=== PATIENT | female | born 1955 | race Caucasian/White ===

== ENCOUNTER → 2020-09-20 11:29 | Outpatient (CLI) | payer MEDICARE, SELFPAY ==
--- NOTE | ~2020-09-20 | DEXA_ITS ---
Bone Density Report Name: Belinda Fong Age: 64 Sex: Female Ethnicity: White Date of : 1955 Indication: osteopenia; parental hip fracture; hysterectomy; Referring Provider: STEVE HAMLIN Study: Bone densitometry was performed. Exam Date: September 20, 2020 Accession number: [id number] Bone Density: Region BMD T-score Z-score Classification AP Spine (L1-L4) 1.014 -0.3 1.5 Normal Femoral Neck (Left) 0.635 -1.9 -0.4 Osteopenia Total Hip (Left) 0.767 -1.4 -0.2 Osteopenia Femoral Neck (Right) 0.685 -1.5 0.1 Osteopenia Total Hip (Right) 0.796 -1.2 0.1 Osteopenia Total Hip Mean 0.782 -1.3 -0.1 Osteopenia World Health Organization criteria for BMD impression classify patients as: Normal (T-score at or above -1.0), Osteopenia (T-score between -1.0 and -2.5), or Osteoporosis (T-score at or below -2.5). 10-year Fracture Risk(1): Major Osteoporotic Fracture 19% Hip Fracture 3.0% Reported Risk Factors: [place] (), Neck BMD=0.635, BMI=28.4, parental fracture, smoking (1) FRAX(R) Version 3.08. Fracture probability calculated for an untreated patient. Fracture probability may be lower if the patient has received treatment. Previous Exams: Region Exam Age BMD T-score BMD Change BMD Change Date g/cm2 vs Baseline vs Previous AP Spine(L1-L4) 09/20/2020 64 1.014 -0.3 0.056* 0.027* 09/10/2018 62 0.987 -0.5 0.029* -0.025* 02/24/2016 60 1.012 -0.3 0.054* 0.050* 02/16/2014 58 0.962 -0.8 0.004 0.004 01/30/2011 55 0.958 -0.8 Total Hip(Left) 09/20/2020 64 0.767 -1.4 -0.062* -0.034* 09/10/2018 62 0.801 -1.2 -0.028* 0.010 02/24/2016 60 0.791 -1.2 -0.037* 0.006 02/16/2014 58 0.786 -1.3 -0.043* -0.043* 01/30/2011 55 0.829 -0.9 Total Hip(Right) 09/20/2020 64 0.796 -1.2 -0.044* 0.011 09/10/2018 62 0.785 -1.3 -0.055* 0.011 02/24/2016 60 0.774 -1.4 -0.066* -0.010 02/16/2014 58 0.784 -1.3 -0.056* -0.056* 01/30/2011 55 0.840 -0.8 *Denotes significance at 95% confidence level, LSC for AP Spine = 0.022 g/cm2, LSC for Total Hip = 0.027 g/cm2 Clinical Information Provided by Patient: Parent has had a hip fracture Smokes Has used the following medications: Vitamin D Has the following medical conditions: Hysterectomy Patient maxim
== END ==
PROVIDERS: PCP Internal Medicine; Visit Provider Obstetrics & Gynecology Gynecology
DX: Z78.0 Asymptomatic menopausal state (principal); M85.852 Other specified disorders of bone density and structure, left thigh; M85.851 Other specified disorders of bone density and structure, right thigh
CPT/HCPCS: 77080

== ENCOUNTER → 2021-03-22 11:30 | Outpatient (CLI) | payer MEDICARE, SELFPAY ==
--- NOTE | ~2021-03-22 | MM_ITS ---
EXAMINATION: MM screening [facility] BI w mignon HISTORY: Screening TECHNIQUE: Craniocaudal and mediolateral oblique 3-D tomosynthesis images were obtained and synthetic 2-D images were generated. CAD analysis was submitted and interpreted. COMPARISON: Comparison to multiple prior studies sequentially, with oldest reviewed study dated 02/2016. BREAST PARENCHYMAL COMPOSITION: There are scattered areas of fibroglandular density. FINDINGS: There is a mass in the upper outer quadrant of the right breast, seen on MLO view only. The left breast is stable without evidence for malignancy. IMPRESSION: 1. Right breast mass measuring approximately 8 mm, upper outer quadrant. 2. Additional mammographic views and possible breast ultrasound are recommended. BI-RADS Category 0: Incomplete: Needs additional imaging evaluation. Reviewed, dictated and finalized at location A. IMPRESSION: 1. Right breast mass measuring approximately 8 mm, upper outer quadrant. 2. Additional mammographic views and possible breast ultrasound are recommended . BI-RADS Category 0: Incomplete: Needs additional imaging evaluation.
== END ==
PROVIDERS: PCP Internal Medicine; Visit Provider Obstetrics & Gynecology Gynecology
DX: Z12.31 Encounter for screening mammogram for malignant neoplasm of breast (principal); R92.8 Other abnormal and inconclusive findings on diagnostic imaging of breast
CPT/HCPCS: 77063; 77067

== ENCOUNTER → 2021-05-19 08:26 | Outpatient (CLI) | payer MEDICARE, SELFPAY ==
--- NOTE | ~2021-05-19 | MM_ITS ---
EXAMINATION: MM diagnostic kadi RT w mignon HISTORY: Approximately 8 mm mass upper outer quadrant right breast mass visible only on MLO view repo rted on 03/22/2021 screening mammogram TECHNIQUE: Additional ML 3-D tomosynthesis images of the right breast were performed and synthetic 2- D images were generated. CAD analysis was submitted and interpreted. COMPARISON: 03/22/2021 bilateral digital screening mammogram FINDINGS: The previously reported currently 7 mm circumscribed low-density opacity in the anterior up per outer quadrant of the right breast corresponds to a skin mole marker. IMPRESSION: 1. No mammographic evidence of malignancy 2. Routine mammographic screening is recommended BI-RADS Category 2: Benign finding(s). Reviewed, dictated and finalized at location A.
== END ==
PROVIDERS: PCP Internal Medicine; Visit Provider Obstetrics & Gynecology Gynecology
DX: R92.8 Other abnormal and inconclusive findings on diagnostic imaging of breast (principal)
CPT/HCPCS: 77061; 77065; G0279

== ENCOUNTER → 2022-09-29 12:45 | Outpatient (CLI) | payer MEDICARE, SELFPAY ==
--- NOTE | ~2022-09-29 | DEXA_ITS ---
Bone Density Report Name: MERRITT NETTLES Age: 66 Sex: Female Ethnicity: White Date of : 1955 Indication: osteopenia; parental hip fracture; hysterectomy; postmenopausal Referring Provider: STEVE HAMLIN Study: Bone densitometry was performed. Exam Date: September 29, 2022 Accession number: [id number] Bone Density: Region BMD T-score Z-score Classification AP Spine (L1-L4) 0.987 -0.5 1.4 Normal Femoral Neck (Left) 0.573 -2.5 -0.8 Osteoporosis Total Hip (Left) 0.741 -1.6 -0.3 Osteopenia Femoral Neck (Right) 0.655 -1.7 -0.1 Osteopenia Total Hip (Right) 0.770 -1.4 0.0 Osteopenia Total Hip Mean 0.756 -1.5 -0.2 Osteopenia World Health Organization criteria for BMD impression classify patients as: Normal (T-score at or above -1.0), Osteopenia (T-score between -1.0 and -2.5), or Osteoporosis (T-score at or below -2.5). 10-year Fracture Risk: FRAX not reported because: Some T-score for Spine Total or Hip Total or Femoral Neck at or below -2.5 Previous Exams: Region Exam Age BMD T-score BMD Change BMD Change Date g/cm2 vs Baseline vs Previous AP Spine(L1-L4) 09/29/2022 66 0.987 -0.5 0.029* -0.026* 09/20/2020 64 1.014 -0.3 0.056* 0.027* 09/10/2018 62 0.987 -0.5 0.029* -0.025* 02/24/2016 60 1.012 -0.3 0.054* 0.050* 02/16/2014 58 0.962 -0.8 0.004 0.004 01/30/2011 55 0.958 -0.8 Total Hip(Left) 09/29/2022 66 0.741 -1.6 -0.088* -0.026 09/20/2020 64 0.767 -1.4 -0.062* -0.034* 09/10/2018 62 0.801 -1.2 -0.028* 0.010 02/24/2016 60 0.791 -1.2 -0.037* 0.006 02/16/2014 58 0.786 -1.3 -0.043* -0.043* 01/30/2011 55 0.829 -0.9 Total Hip(Right) 09/29/2022 66 0.770 -1.4 -0.069* -0.026 09/20/2020 64 0.796 -1.2 -0.044* 0.011 09/10/2018 62 0.785 -1.3 -0.055* 0.011 02/24/2016 60 0.774 -1.4 -0.066* -0.010 02/16/2014 58 0.784 -1.3 -0.056* -0.056* 01/30/2011 55 0.840 -0.8 *Denotes significance at 95% confidence level, LSC for AP Spine = 0.022 g/cm2, LSC for Total Hip = 0.027 g/cm2 Clinical Information Provided by Patient: Parent has had a hip fracture Smokes Has used the following medications: Vitamin D, MTV Has the following medical conditions: Hysterectomy, cervical cancer age 39 Pa
--- NOTE | ~2022-09-29 | MM_ITS ---
EXAMINATION: MM screening [facility] BI w mignon HISTORY: Screening mammogram TECHNIQUE: Craniocaudal and mediolateral oblique 3-D tomosynthesis images were obtained and synthetic 2-D images were generated. CAD analysis was submitted and interpreted. COMPARISON: 05/19/2021, 04/11/2021, 11/03/2019, 09/10/2018 BREAST PARENCHYMAL COMPOSITION: There are scattered areas of fibroglandular density. FINDINGS: No suspicious mass, calcification, or architectural distortion are identified in either vinayak ast to suggest malignancy. There has been no suspicious interval change. IMPRESSION: 1. No mammographic evidence of malignancy. 2. Recommend routine screening mammography in one year. BI-RADS Category 1: Negative Reviewed, dictated and finalized at location A. 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
== END ==
PROVIDERS: PCP Internal Medicine; Visit Provider Obstetrics & Gynecology Gynecology
DX: Z12.31 Encounter for screening mammogram for malignant neoplasm of breast (principal); Z78.0 Asymptomatic menopausal state; M81.0 Age-related osteoporosis without current pathological fracture; M85.852 Other specified disorders of bone density and structure, left thigh; M85.851 Other specified disorders of bone density and structure, right thigh
CPT/HCPCS: 77063; 77067; 77080

== ENCOUNTER → 2023-11-01 14:03 | Outpatient (CLI) | payer MEDICARE, SELFPAY ==
--- NOTE | ~2023-11-01 | MM_ITS ---
EXAMINATION: MM screening [facility] BI w mignon HISTORY: Screening mammogram TECHNIQUE: Craniocaudal and mediolateral oblique 3-D tomosynthesis images were obtained and synthetic 2-D images were generated. CAD analysis was submitted and interpreted. COMPARISON: 09/29/2022, 05/19/2021, 03/22/2021, 11/03/2019 BREAST PARENCHYMAL COMPOSITION: There are scattered areas of fibroglandular density. FINDINGS: No suspicious mass, calcification, or architectural distortion are identified in either vinayak ast to suggest malignancy. There has been no suspicious interval change. IMPRESSION: 1. No mammographic evidence of malignancy. 2. Recommend routine screening mammography in one year. BI-RADS Category 1: Negative Reviewed, dictated and finalized at location A. 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
== END ==
PROVIDERS: PCP Obstetrics & Gynecology Gynecology; Visit Provider Obstetrics & Gynecology Gynecology
DX: Z12.31 Encounter for screening mammogram for malignant neoplasm of breast (principal)
CPT/HCPCS: 77063; 77067

== ENCOUNTER 2025-06-25 13:47 | Outpatient (CLI) | payer MEDICARE, SELFPAY ==
--- NOTE | ~2025-06-25 | MM_ITS ---
EXAMINATION: MM screening [facility] BI w mignon HISTORY: Screening TECHNIQUE: Craniocaudal and mediolateral oblique 3-D tomosynthesis images were obtained and synthetic 2-D images were generated. CAD analysis was submitted and interpreted. COMPARISON: Mammograms from 11/01/2023 and 09/29/2022 BREAST PARENCHYMAL COMPOSITION: There are scattered areas of fibroglandular density. FINDINGS: There is no evidence of suspicious mass, calcification, or architectural distortion to suggest malignancy. There has been no suspicious interval change. IMPRESSION: 1. No mammographic evidence of malignancy. Recommend routine screening mammography in one year. BI-RADS Category 2: Benign finding(s) Reviewed, dictated and finalized at location Q. IMPRESSION: 1. No mammographic evidence of malignancy. Recommend routine screening mammogra phy in one year. BI-RADS Category 2: Benign finding(s)
--- NOTE | ~2025-06-25 | DEXA_ITS ---
Bone Density Report Name: MERRITT NETTLES Age: 69 Sex: Female Ethnicity: White Date of : 1955 Indication: postmenopausal; screening for osteoporosis; height loss; cancer; hysterectomy; Referring Provider: STEVE HAMLIN Study: Bone densitometry was performed. Exam Date: June 25, 2025 Accession number: [id number] Bone Density: Region BMD T-score Z-score Classification AP Spine(L1-L4) 0.937 -1.0 1.1 Normal Femoral Neck (Left) 0.630 -2.0 -0.1 Osteopenia Total Hip (Left) 0.776 -1.4 0.2 Osteopenia Femoral Neck (Right) 0.617 -2.1 -0.3 Osteopenia Total Hip (Right) 0.761 -1.5 0.0 Osteopenia Total Hip Mean 0.768 -1.5 0.1 Osteopenia World Health Organization criteria for BMD impression classify patients as: Normal (T-score at or above -1.0), Osteopenia (T-score between -1.0 and -2.5), or Osteoporosis (T-score at or below -2.5). 10-year Fracture Risk(1): Major Osteoporotic Fracture 13% Hip Fracture 4.0% Reported Risk Factors: [place] (), Neck BMD=0.617, BMI=28.1, smoking (1) FRAX(R) Version 3.08. Fracture probability calculated for an untreated patient. Fracture probability may be lower if the patient has received treatment. Clinical Information Provided by Patient: Smokes Has used the following medications: Fosamax (i.e. alendronate), Vitamin D, Calcium Has the following medical conditions: Cancer, Hysterectomy Patient maximum height was 66 Menopause Age: 39 No regular weight bearing exercise Drinks caffeinated beverages Onset of menses at age 12 Number of children 0 Impression: The patient has low bone mass, based on the Right Femoral Neck T-score. The patient has an estimated ten-year risk of hip fracture of 4% and an estimated ten-year risk of major fracture of 13%, based on the WHO FRAX algorithm. The patient has risk factors, including: smoking. Discussion: BONE DENSITY IS LOW AT ONE OR MORE SKELETAL SITES. THE PATIENT'S BMD AND CLINICAL RISK FACTORS CONTRIBUTE TO THIS PATIENT'S INCREASED RISK OF FRACTURE. This patient's lowest T-score is low at one or more skeletal sites. It meets the World Health Organization's (WHO) criteria for ?low bone mass? (T-score between -1.0 and -2.5). The patient's 10-year risk of hip fracture as calculated by FRAX exceeds the threshold where pharmacological therapy is recommended by the National Osteoporosis Foundation (NOF). However, all treatment decisions require clinical judgment and consideration of individual patient factors, including patient preferences, comorbidities, previous drug use, risk factors not captured in the FRAX model (e.g., frailty, falls, vitamin D deficiency, increased bone turnover, interval significant decline in bone density) and possible under or overestimation of fracture risk by FRAX. The patient should follow a healthful lifestyle (good nutrition with adequate calcium and vitamin D, and appropriate weight-bearing exercise). Follow-Up: Consider a repeat BMD and Vertebral Fracture Assessment (VFA) exam in 2 years or sooner if medically necessary, to reassess this patient's status. Reported by: CORY on 06/25/2025 2:40:00 PM. Reviewed, dictated and finalized at location A.
--- OUTSIDE RECORDS SUMMARY | 2025-06-25 14:03 | XMS_ITS | Clinical Summary ---
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 Penicillin allergy History form completed, severe risk Medications OMEGA-3 FATTY ACIDS (FISH OIL ORAL) Take 1 Cap by mouth daily. Active cyanocobalamin (VITAMIN B-12) 500 mcg tablet Take 500 mcg by mouth daily. Active valACYclovir (VALTREX) 500 mg tablet 1 Tablet daily. 5 Active cyclobenzaprine (FLEXERIL) 10 mg tablet Take 1 Tablet (10 mg) by mouth nightly as needed for Spasm. 30 Tablet 1 9 Active ferrous sulfate 325 mg (65 mg iron) tablet Take 1 pill every other day. 2 Active alendronate (FOSAMAX) 70 mg tablet TAKE 1 TABLET BY MOUTH ONCE A WEEK 3 Active diazePAM (VALIUM) 5 mg tabletIndication s:Anxiety state Take 1 Tablet (5 mg) by mouth every 6 hours as needed for Anxiety. 60 Tablet 3 Active modafiniL (ProvigiL) 100 mg TabletIndication s:Narcolepsy due to underlying condition without cataplexy Take 1 Tablet (100 mg) by mouth daily. Dx Narcolepsy 90 Tablet 3 3 Active levothyroxine 125 mcg tablet Take 1 Tablet (125 mcg) by mouth daily in the morning. 100 Tablet 3 4 Active nicotine (NICODERM CQ) 21 mg/24 hr patch Apply 1 Patch to skin as directed every 24 hours. 30 Patch 3 4 Active simvastatin (ZOCOR) 40 mg tablet TAKE 1 TABLET BY MOUTH ONCE DAILY WITH SUPPER 90 Tablet 3 4 Active DULoxetine (CYMBALTA) 20 mg Capsule, Delayed Release(E.C.) Take 1 Capsule (20 mg) by mouth daily. 90 Capsule 3 4 Active DULoxetine (CYMBALTA) 20 mg Capsule, Delayed Release(E.C.) Take 1 capsule by mouth once daily 90 Capsule 4 Active modafiniL (PROVIGIL) 200 mg TabletIndication s:Narcolepsy due to underlying condition without cataplexy Take 1 Tablet (200 mg) by mouth daily. 90 Tablet 3 4 Active losartan (COZAAR) 25 mg tabletIndication s:Essential hypertension Take 1 Tablet (25 mg) by mouth daily. 100 Tablet 1 5 Active doxycycline hyclate (VIBRAMYCIN) 100 mg capsule Take 1 Capsule (100 mg) by mouth 2 times daily. 20 Capsule 5 Active ezetimibe (ZETIA) 10 mg tablet Take 1 Tablet (10 mg) by mouth daily. 100 Tablet 3 5 Active levothyroxine 112 mcg tablet Take 1 Tablet (112 mcg) by mouth daily in the morning. 100 Tablet 3 5 Active buPROPion HCL (WELLBUTRIN SR) 100 mg Sustained Release 12 hour tablet Take 1 Tablet (100 mg) by mouth 2 times daily. 180 Tablet 5 Active buPROPion HCL (WELLBUTRIN SR) 100 mg Sustained Release 12 hour tablet Take 1 tablet by mouth twice daily 180 Tablet 4 025 Discontin ued(Reord er) Active Problems Patient Care Coordination No te Formatting of this note migh t be different from the original. IOCP Declined, Meredith Mercado, RN - Street Light Mechanic [id number] 05/12/24 Problem Noted Date Diagnosed Date Essential hypertension 09/28/2022 Assessment & Plan (01/13/2025 1:01 PM CDT): Uncontrolled. Initial blood pressure and repeat blood pressures remain elevated. Restart Losartan at 25mg QD. Pt to check ambulatory pressures 2-3 times a week and record readings, and call if remains elevated. Discussed goals of treatment and risks of untreated HTN in detail including complications like heart disease, renal complications, and stroke. Handouts provided. Patient verbalized understanding. LVH (left ventricular hypertrophy) 03/11/2018 Overview (03/11/2018): 03/08- echo mild eF 53% Diastolic dysfunction 03/11/2018 Overview (03/11/2018): 03/08 echo- grade 1, EF 53% Tobacco use 07/08/2015 Leukocytosis 09/22/2013 Hyperlipidemia 11/30/2010 Vitamin D deficiency 11/30/2010 Osteoporosis 11/30/2010 Depression 11/30/2010 Urinary incontinence 11/30/2010 Hypothyroidism 11/30/2010 Assessment & Plan (01/13/2025 1:01 PM CDT): TSH 0.84 Continue Levothyroxine at 112 mcg QD Resolved Problems Problem Noted Date Diagnosed Date Resolved Date Vertigo 07/06/2014 03/09/2016 Encounters Date Type Department Care Team Description 06/07/2025 Refill [place] [address] [place] [address] [place] [phone] Jose Marcano MD 05/26/2025 Patient Outreach [facility] Outbound Calling [phone] [place] [address] Azalea Glaser PCA Primary Care Outreach (Breast Cancer Screening) [facility] [facility] [place] [address] [place] [phone] Jose Marcano MD 05/06/2025 External Device Data [facility] ABSTRACTION Provider, Abstract 05/05/2025 External Device Data [facility] ABSTRACTION Provider, Abstract 04/09/2025 Results Follow-Up [place] [address] [place] [phone] LUNG SCREENING (LDCT BASELINE OR ANNUAL) 04/08/2025 1:36 PM CDT - 04/08/2025 11:59 PM CDT Hospital Encounter [facility] CT Scan [place] [address] [place] [address] [place] [phone] Jose Marcano MD Discharge Disposition: Home or Self Care 04/07/2025 External Device Data ST[facility] ABSTRACTION Provider, Abstract 04/02/2025 12:00 PM CDT Office Visit [facility] [address] [place] [phone] Jose Marcano MD Screening mammogram, encounter for (Primary Dx); Stage 3a chronic kidney disease (CMS/HCC); Enlarged lymph node; Other acute sinusitis, recurrence not specified from Last 3 Months Immunizations Immunization Administration Dates Next Due (ADACEL/BOOSTRIX)(10 YR UP) TDAP VACCINE, 0.5ML, IM 11/04/2015 (AREXVY)(60 YR UP) RSV, DONNA MBINANT, PROTEIN SUBUNIT RSVPREF, ADJUVANT RECONSTITUTED, 0.5 ML, PF 10/22/2023 (PNEUMOVAX 23)(50 YRS UP) PN EUMOCOCCAL POLYSACCHARIDE (PPV23) 0.5 ML, IM 11/06/2018,08/21/2011 (PREVNAR 13)(6 WKS UP) PNEUM OCOCCAL CONJUGATE (PCV13) 0.5 ML, IM 07/14/2020 (SHINGRIX)(50 YRS UP) ZOSTER VACCINE RECOMBINANT, 0.5 ML, IM 09/14/2020,06/30/2020 (SPIKEVAX) (12 YRS UP PRIMAR Y SERIES) COVID-19 VACCINE - MRNA-1273(PF) 100 MCG/0.5 ML IM SUSP 04/13/2022,10/07/2021,01/24/2021,12/27 INFLUENZA VACCINE HIGH DOSE QUADRIVALENT 65 YR UP PF IM 08/24/2022,07/20/2021,07/14/2020 INFLUENZA VACCINE QUADRIVALE NT 6 MOS UP IM 08/22/2023 INFLUENZA VACCINE QUADRIVALE NT 6 MOS UP PF IM 09/10/2019 Influenza Seasonal Unspecifi ed Formulation IM 08/13/2017,10/11/2016,10/05/2015,08/06,08/20/2013,07/22/2012,07/28/2011 Influenza Vaccine High Dose 65+ Yrs IM 4 Influenza Vaccine Split 3+ Yrs PF IM 07/03/2018 Zoster Vaccine Live SQ 03/08/2016 Family History Medical History Relation Name Comments Diabetes Brother 3 Jacobo High Cholesterol Brother 3 Jacobo Hypertension Brother 3 Jacobo Other Brother 3 Jacobo brain tumor Glaucoma Brother 4 Efrain Hypertension Brother 4 Efrain Kidney Disease Brother 4 Efrain Hypertension Brother 5 Lung Cancer Father Joni Diabetes Maternal Grandfather Ede Diabetes Maternal Grandmother Adelina Osteoporosis Maternal Grandmother Adelina Skin Cancer Maternal Grandmother Adelina Diabetes Mother Marivel High Cholesterol Mother Marivel Hypertension Mother Marivel Stroke Mother Marivel Diabetes Paternal Grandmother Etha High Cholesterol Sister 4 Gladys Hypertension Sister 4 Gladys Skin Cancer Sister 4 Gladys Thyroid Disease Sister 4 Gladys High Cholesterol Sister 5 Radha Hypertension Sister 5 Radha Kidney Disease Sister 5 Radha Thyroid Disease Sister 5 Radha Diabetes Sister 6 Gladys michael Relation Name Status Comments Brother 1 (Age 68) Brother 2 Alive Brother 3 Jacobo Brother 4 Efrain Brother 5 Father Joni (Age 77) Maternal Grandfather Ede Maternal Grandmother Adelina Mother Marivel (Age 56) Paternal Grandmother Etha Sister 1 Alive Sister 2 Alive Sister 3 Alive Sister 4 Gladys Sister 5 Radha Sister 6 Gladys michael Social History Tobacco Use Types Packs/Day Years Used Date Smoking Tobacco: Every Day Cigarettes 0.3 40 Started: 05/03/1982; Last attempted to quit: 05/03/2022 Passive Smoke Exposure: Never Smokeless Tobacco: Never Tobacco Cessation:Ready to Q uit: Yes; Counseling Given: Yes Alcohol Use Standard Drinks/Week Comments No 0 (1 standard drink = 0.6 oz pur e alcohol) Financial Resource Strain Answer Date R ecorded How hard is it for you to pa y for the very basics like food, housing, medical care, and heating? Not hard at all 01/18/2022 Food Insecurity Answer Date Recorded In the past 12 months, have you worried that your food would run out before you had money to buy more? Never true 01/18/2022 In the past 12 months, did y ou run out of food and didn't have money to buy more? Never true 01/18/2022 Transportation Needs Answer Date Record ed In the past 12 months, has l ack of transportation kept you from medical appointments or from getting medications? No 01/18/2022 Lack of Transportation (Non-Medical) Not on file 01/18/2022 Comments No Sex and Gender Information Value Date Recorded Sex Assigned at Female 01/06/2025 9:31 AM CDT Legal Sex Female 5:59 AM SPECIAL LIBRARIAN Gender Identity Female 01/06/2025 9:31 AM CDT Sexual Orientation Straight 01/06/2025 9: 31 AM CDT Last Filed Vital Signs Vital Sign Reading Time Taken Comments Blood Pressure 139/86 04/02/2025 11:48 AM CDT Pulse 72 04/02/2025 11:48 AM CDT Temperature 36.2 C (97.2 F) 04/02/2025 11:48 AM CDT Respiratory Rate 15 05/03/2023 1:19 PM CDT Oxygen Saturation 96% 04/02/2025 11:48 AM CDT Inhaled Oxygen Concentration - - Weight 76.2 kg (168 lb) 04/02/2025 11:48 AM CDT Height 167.6 cm (5' 6) 04/02/2025 11:48 AM CDT Body Mass Index 27.12 04/02/2025 11:48 AM CDT Plan of Treatment Upcoming Encounters Date Type Department Care Team (Late st Contact Info) Description 07/14/2025 11:00 AM CDT Office Visit [address] [place] [phone] Louisa Frias PA [address] [place] [address] [address] [place] [phone] 01/14/2026 11:40 AM CDT Office Visit [address] [place] [phone] Jose Marcano MD [address] [place] [phone] Health Maintenance Due Date Last Done Comments FIT/ DNA Q 3 YEARS (AUTO ORDER) 1972 FIT/FOBT Q 1 YEAR (AUTO ORDER) 1972 FIT-DNA Q 3 years 1999 FIT/FOBT Q 1 year 1999 Flex Sig/CT Colonography Q 5 years 1999 BREAST CANCER SCREENING 11/01/2024 11/01/19 24, 11/01/2023, 11/01/2023, Additional history exists Pre-Diabetes and Diabetes Screening 01/16/2025 01/16/2022, 08/31/2016 Traditional Medicare ([facility]) A nnual Wellness Visit 05/13/2025 05/12/2024, 05/03/2023, 01/18/2022, Additional history exists INFLUENZA VACCINE (#1) 2025 , 08/22/2023, 08/24/2022, Additional history exists COVID-19 Vaccine ( - 2024-2 6 season) 2025 04/13/2022, 10/07/2021, 01/24/2021, Additional history exists PNEUMOCOCCAL VACCINE 50+ YEA RS (3 of 3 - PCV20 or PCV21) 07/14/2025 07/14/2020, 11/06/2018, 08/21/2011 DTAP/TDAP/TD VACCINES (2 - T d or Tdap) 11/04/2025 11/04/2015 FLEX SIG/CT COLONOGRAPHY Q 5 YEARS (AUTO ORDER) 09/06/2027 09/06/2022, 09/06/2022 OSTEOPOROSIS SCREENING 09/29/2027 09/29/2022, 2019 COLORECTAL CANCER SCREENING (AUTO ORDER) 09/06/2032 09/06/2022, 09/06/2022, 09/06/2022, Additional history exists COLORECTAL SCREENING 09/06/2032 09/06/2022, 09/06/2022, 09/06/2022, Additional history exists Colorectal Cancer Screening (AUTO ORDER) 09/06/2032 Colorectal Cancer Screening 09/06/2032 ZOSTER VACCINE Completed 09/14/2020, 090 06/2020, 03/08/2016 RSV VACCINE (60+ or ) Completed 10/22/2023 Procedures Procedure Name Priority Date/Time Associated Diagnosis Comments CT LUNG SCREENING (LDCT BASELINE OR ANNUAL) Routine 04/08/2025 1:59 PM CDT Personal history of tobacco use, presenting hazards to health HM MAMMOGRAPHY Routine 11/01/2023 8:53 AM SPECIAL LIBRARIAN ENDOSCOPY, COLON, DIAGNOSTIC Routine 09/06/2022 HEMOGLOBIN A1C Routine 01/16/2022 12:00 AM CDT Abnormal glucose from Last 3 Months or Most Recently Relevant to Health Maintenance Results * CT LUNG SCREENING (LDCT BASELINE OR ANNUAL) (04/08/2025 1:59 PM CDT) Anatomical Region Laterality Modality Chest Computed Tomogra phy 04/08/2025 1:50 PM CDT Impressions 04/08/2025 8:38 PM CDT IMPRESSION: 1. Category 2 (benign appearance or behavior, <1% chance of malignancy) - continue annual screening with LDCT. DICTATION LOCATION: Location 1 - [facility] 04/08/2025 8:38 PM CDT EXAMINATION: CT LUNG SCREENING (LDCT BASELINE OR ANNUAL) DATE: 04/08/2025 1:59 PM TECHNIQUE: CT of the chest was performed without intravenous contrast using a low-dose CT (LDCT) technique according to low-dose lung screening chest CT protocol. The examination was performed with the adjustment of mA according to the patient size and/or the use of Iterative Reconstruction Technique. HISTORY: High-risk screening for lung cancer. 40 total pack year smoking history. COMPARISON: 02/11/2024 LIMITATIONS: Low-dose, noncontrast technique limits evaluation of the solid viscera and mediastinum. PULMONARY FINDINGS: Nodule 1: 7 mm ground glass pulmonary nodule in the left lower lobe series 2039 (image 324) is unchanged. Lung-RADS (Lung Imaging Reporting and Data System) Category: Category 2 (benign appearance or behavior, <1% chance of malignancy) - ground glass nodule(s) <30 mm. Nodule 2: 5 mm ground glass pulmonary nodule in the right lower lobe series 2040 (image 144) is unchanged. Lung-RADS (Lung Imaging Reporting and Data System) Category: Category 2 (benign appearance or behavior, <1% chance of malignancy) - ground glass nodule(s) <30 mm. Nodule 3: 3 mm solid pulmonary nodule in the right upper lobe series 3 (image 188) is new. Lung-RADS (Lung Imaging Reporting and Data System) Category: Category 2 (benign appearance or behavior, <1% chance of malignancy) - new solid nodule(s) <4 mm. There is mild bibasilar atelectasis. No focal lung consolidation, pneumothorax or pleural effusion. There are changes of pulmonary emphysema. ADDITIONAL FINDINGS: The central airways are widely patent. The aorta is of normal course and ectatic with mild atherosclerotic calcification. No supraclavicular, axillary, mediastinal, or hilar lymphadenopathy is seen. The heart is normal in size without pericardial effusion. There is coronary artery calcification. Limited images of the upper abdomen are unremarkable. No suspicious lytic or blastic osseous lesion or acute fracture. us Jose Marcano MD CT ORDERABLES Final Result * HM MAMMOGRAPHY (11/01/2023 8:53 AM SPECIAL LIBRARIAN) us Abstract Provider HEALTH MAINTENANCE Edited Resu lt - Final [facility] CLIA #[id number] [address] [place] [phone] * ENDOSCOPY, COLON, DIAGNOSTIC (09/06/2022) us Abstract Provider GI PROCEDURE ORDERABLES Final Result [facility] CLIA# [id number] [facility], [place] [address] * HEMOGLOBIN A1C (01/16/2022 12:00 AM CDT) HEMOGLOBIN A1C 5.1 <5.7 % of total Hgb [facility] Comment: For the purpose of screening for the presence of diabetes: <5.7% Consistent with the absence of diabetes 5.7-6.4% Consistent with increased risk for diabetes (prediabetes) > or =6.5% Consistent with diabetes This assay result is consistent with a decreased risk of diabetes. Currently, no consensus exists regarding use of hemoglobin A1c for diagnosis of diabetes in children. According to [place] Diabetes Association (ADA) guidelines, hemoglobin A1c <7.0% represents optimal control in non- diabetic patients. Different metrics may apply to specific patient populations. Standards of Medical Care in Diabetes(ADA). FASTING:YES FASTING: YES Blood 01/16/2022 01/16/2022 7:5 1 AM CDT us Jose Marcano MD CHEMISTRY ORDERABLES Final Re sult [address] [id number] from Last 3 Months or Most Recently Relevant to Health Maintenance Insurance MEDICARE PART A AND B [employer] MEDICARE SUPP AESSI Care Teams Splicer Machine Operator Relationship Specialty Start Date End Date Jose Marcano MD PCP - General Internal Medicine 11/28/10
--- OUTSIDE RECORDS SUMMARY | 2025-06-25 14:04 | XMS_ITS | Clinical Summary ---
Author Organization [facility] Physician Of [facility] [address] [place] [id number] Care Team Providers Care Airport Traffic Controller Name Role Phone Jose Marcano MD Primary Care Provider + Kyle Rodríguez MD Unavailable [phone] Allergies Active Allergy Reactions Criticality Noted Date Comments Escitalopram Oxalate Anxiety Low 07/06/2014 Penicillins Shortness of breath,Swelling,Other (See comments) High 11/30/2010 Told she was allergic as a child History form completed, severe risk Medications OMEGA-3 FATTY ACIDS-FISH OIL ORALIndications:s upplement Take 1 capsule by mouth cloth winder machine operator before breakfast Active DULoxetine DR (CYMBALTA) 20 mg capsuleIndication s:Anxiety with Depression Take 1 capsule (20 mg total) by mouth cloth winder machine operator before breakfast 0 Active ezetimibe (ZETIA) 10 mg tabletIndications :hyperlipidemia Take 1 tablet (10 mg total) by mouth nightly 0 Active simvastatin (ZOCOR) 40 mg tabletIndications :hyperlipidemia Take 1 tablet (40 mg total) by mouth nightly 0 Active valACYclovir (VALTREX) 500 mg tabletIndications :Skin/Soft Tissue Infection Take 0.5 tablets (250 mg total) by mouth cloth winder machine operator before breakfast 5 Active multivitamin capsuleIndication s:Vitamin Deficiency Prevention Take 1 capsule by mouth every other day Active modafiniL (PROVIGIL) 100 mg tabletIndications :Sleepiness Due To Obstructive Sleep Apnea Take 2 tablets (200 mg total) by mouth as needed Active buPROPion SR (WELLBUTRIN SR) 100 mg 12 hr tabletIndications :Anxiety with Depression Take 2 tablets (200 mg total) by mouth 2 (two) times a day 2 Active ferrous sulfate 325 mg (65 mg of elemental iron) tabletIndications :Iron Deficiency Anemia Take 1 pill every other day. 45 tablet 3 2 Active alendronate (FOSAMAX) 70 mg tabletIndications :Post-Menopausal Osteoporosis Take 1 tablet (70 mg total) by mouth once a week 4 Active calcium carbonate (OS-SIMONA) 1,500 mg (600 mg elemental) tabletIndications :Osteoporosis Take 1 tablet (1,500 mg total) by mouth cloth winder machine operator before breakfast Active cholecalciferol, vitamin D3, (VITAMIN D3 ORAL)Indications: supplement Take 1 tablet by mouth every 30 (thirty) days Active ergocalciferol (VITAMIN D) 50,000 unit capsule Take by mouth every 30 (thirty) days 5 Active losartan (COZAAR) 25 mg tablet Take 1 tablet (25 mg total) by mouth daily 5 Active levothyroxine (SYNTHROID) 112 mcg tablet Take 1 tablet (112 mcg total) by mouth daily 5 Active Active Problems Problem Noted Date Diagnosed Date Epiretinal membrane (ERM) of right eye 4 Assessment & Plan (05/14/2025 9:56 AM CDT): Stable vision/OCT Monitor Assessment & Plan (06/30/2024 6:32 PM CDT): Pt ed, monitor Myopia of both eyes 06/30/2024 Assessment & Plan (06/30/2024 6:33 PM CDT): Release updated glasses Rx Dermatochalasis of both upper eyelids 06/10/2024 Ptosis of both eyelids 06/10/2024 PVD (posterior vitreous detachment), left 2023 Assessment & Plan (05/14/2025 9:57 AM CDT): Patient was educated on the signs/sx retinal detachment, including flashes, floaters, and/or curtain over the vision. Recommend patient RTC immediately with the onset of any of these symptoms. Assessment & Plan (04/04/2024 2:45 PM CDT): No breaks noted, s/s of retinal detachment (RD) reviewed. Advised urgent evaluation with any new onset. RTC 1 month for repeat DFE Dermatochalasis of upper and lower eyelids of shayla th eyes 04/04/2024 Assessment & Plan (04/04/2024 2:45 PM CDT): Patient has noticed worsening ADL/field of vision; would like referral to plastics Pseudophakia of both eyes 04/04/2024 Assessment & Plan (05/14/2025 9:56 AM CDT): Patient was educated on the intraocular lens (IOL) status. Follow. Assessment & Plan (06/30/2024 6:33 PM CDT): Patient was educated on the intraocular lens (IOL) status. Follow. Assessment & Plan (04/04/2024 2:46 PM CDT): BCVA excellent, may need SRx OS in future Monitor Chronic diffuse otitis externa of left ear 05/14 Assessment & Plan (05/14/2023 12:26 PM CDT): Avoid ear cleaning techniques Avoid ear cleaning techniques [facility] Sensorineural hearing loss (SNHL) of both ears 0 05/14/2023 Assessment & Plan (05/14/2023 12:26 PM CDT): Avoid ear cleaning techniques [facility] Iron deficiency anemia 06/12/2022 S/P LASIK (laser assisted in situ keratomileusis) of both eyes 12/01/2020 Pilar cyst 08/25/2020 Lipoma of abdominal wall 08/25/2020 Sebaceous cyst 08/25/2020 Overview (08/25/2020): Added automatically from request for surgery [id number] Diastolic dysfunction 03/11/2018 Overview (06/12/2022): 03/08 echo- grade 1, EF 53% LVH (left ventricular hypertrophy) 03/11/2018 Overview (06/12/2022): 03/08- echo mild eF 53% Tobacco use 07/08/2015 Depression 11/30/2010 Hyperlipidemia 11/30/2010 Hypothyroidism 11/30/2010 Osteoporosis 11/30/2010 Urinary incontinence 11/30/2010 Vitamin D deficiency 11/30/2010 Encounters Date Type Department Care Team Description 05/07/2025 11:30 AM CDT Office Visit [facility] Medicine Ophthalmology [address], [address] [place] [address] Leanne Funez, OD Epiretinal membrane (ERM) of right eye (Primary Dx); PVD (posterior vitreous detachment), left; Pseudophakia of both eyes; Encounter for observation for other suspected diseases and conditions ruled out; S/P LASIK (laser assisted in situ keratomileusis) of both eyes 05/07/2025 11:20 AM CDT Imaging Exam [facility] Medicine Ophthalmology [address] [facility] [facility] [address] [place] [address] Pseudophakia of both eyes; Acute angle-closure glaucoma, bilateral; Epiretinal membrane (ERM) of right eye from Last 3 Months Immunizations Immunization Administration Dates Next Due Influenza, Quadrivalent, Spl it, Preservative Free, Intramuscular 09/10/2019 Influenza, Trivalent, IM (MDV) 7,10/11/2016,10/05/2015,08/06,08/20/2013,07/22/2012,07/28/2011 Influenza, Trivalent, Preser vative Free, Intramuscular 07/03/2018,08/12/2017,10/07/2016,10/04,08/30/2013 Moderna SARS-CoV-2 Monovalen t Vaccination (12+ YRS) 04/13/2022,10/07/2021,01/24/2021,12/27 Pneumococcal Conjugate PCV 13 07/14/2020 Pneumococcal Polysaccharide PPV23 11/06/2018, Tdap 11/04/2015 ZOSTER LIVE 03/07/2016 ZOSTER Recombinant 09/14/2020,08/31/2020, 020 Surgical History Surgery Date Site/Laterality Comments HYSTERECTOMY 10/22/1993 - 10/21/1994 CATARACT EXTRACTION W/ INTRA OCULAR LENS IMPLANT, BILATERAL 10/22/2019 - 10/21/2020 Bilateral SINUS SURGERY unknown date COLONOSCOPY 02/22/2021 COLON SURGERY 10/22/2020 - 10/21/2021 ESOPHAGOGASTRODUODENOSCOPY 10/22/2021 - 10/21/2022 COLONOSCOPY 10/22/2018 - 10/21/2019 OTHER SURGICAL HISTORY 10/22/2018 - 10/21/2019 EXCISION CYST Left scalp BLEPHAROPTOSIS REPAIR 09/02/2024 Bilateral REPAIR PTOSIS (Bilateral: Eye) BLEPHAROPLASTY UPPER EYELID (Bilateral: Eye) Medical History Medical History Date Comments Hypertension Hyperlipidemia Overactive bladder Hypothyroidism Cervical cancer (HCC) Scalp cyst Anxiety Lipoma abdomen Pseudophakia, both eyes Dermatochalasis of both upper eyelids S/P BULB x 09/02/2024 ([place] / [place]) Optic cupping, bilateral C/D rat io OU (0.45) Family History Medical History Relation Name Comments Diabetes Brother Cancer Father Diabetes Mother Stroke Mother Diabetes Sister Anesthesia problems Neg Hx Relation Name Status Comments Brother Father Mother Sister Social History Tobacco Use Types Packs/Day Years Used Date Smoking Tobacco: Every Day Cigarettes 1 50 Smokeless Tobacco: Never Alcohol Use Standard Drinks/Week Comments Never 0 (1 standard drink = 0.6 oz pur e alcohol) AUDIT-C Answer Date Recorded Q1: How often do you have a drink containing alcohol? Never 09/02/2024 Q2: How many drinks containi ng alcohol do you have on a typical day when you are drinking? Patient does not drink Q3: How often do you have si x or more drinks on one occasion? Never 09/02/2024 Personal Safety Answer Date Recorded Have you ever been in or are you currently in a harmful physical or emotional relationship or is someone making you feel afraid or unsafe? Denies 09/02/2024 Comments Unknown Sex and Gender Information Value Date Recorded Sex Assigned at Not on file Legal Sex Female 7:23 PM DENTAL OFFICE MANAGER Gender Identity Female 04/30/2025 10:26 PM CDT Sexual Orientation Straight 04/30/2025 10 :26 PM CDT Obstetrics History Last Filed Vital Signs Vital Sign Reading Time Taken Comments Blood Pressure 145/70 09/02/2024 4:02 PM DENTAL OFFICE MANAGER Pulse 59 09/02/2024 4:03 PM DENTAL OFFICE MANAGER Temperature 35.7 C (96.3 F) 09/02/2024 4:02 PM DENTAL OFFICE MANAGER Respiratory Rate 18 09/02/2024 4:03 PM DENTAL OFFICE MANAGER Oxygen Saturation 97% 09/02/2024 4:03 PM DENTAL OFFICE MANAGER Inhaled Oxygen Concentration - - Weight 68 kg (150 lb) 09/02/2024 12:35 PM DENTAL OFFICE MANAGER Height 167.6 cm (5' 6) 09/02/2024 12:35 PM DENTAL OFFICE MANAGER Body Mass Index 24.21 09/02/2024 12:35 PM DENTAL OFFICE MANAGER Plan of Treatment Health Maintenance Due Date Last Done Comments Depression Screening 1955 Osteoporosis Screening-Bone Density Scan 1955 Hepatitis B Screening 1972 Well Visit 65+ 2019 Breast Cancer Screening-Mammogram 11/10/2020 020, 11/10/2019 Covid-19 Vaccine (5 - 2024-2 6 season) 2025 04/13/2022, 10/07/2021, 01/24/2021, Additional history exists Influenza Vaccine (#1) 2025 , 08/28/2023, 08/22/2023, Additional history exists Pneumococcal vaccine 65+ (3 of 3 - PCV20 or PCV21) 07/14/2025 07/14/2020, 11/06/2018, 08/21/2011 Fall Risk Assessment 09/02/2025 09/02/2024 DTaP/Tdap/Td Vaccine (2 - Td or Tdap) 11/04/2025 11/04/2015 Lung Cancer Screening 04/08/2026 04/08/2025 , 02/11/2024, 03/13/2022, Additional history exists Colon Cancer Screening-Colonoscopy 09/06/20322021 Hepatitis C Screening Completed 04/17/2016 Zoster Vaccine Completed 09/14/2020, 08/22, 06/30/2020, Additional history exists Procedures Procedure Name Priority Date/Time Associated Diagnosis Comments OCT, RETINA - OU - BOTH EYES Routine 05/07/2025 11:31 AM CDT Epiretinal membrane (ERM) of right eye OCT, OPTIC NERVE - OU - BOTH EYES Routine 05/07/2025 11:31 AM CDT Pseudophakia of both eyes Acute angle-closure glaucoma, bilateral COLONOSCOPY 09/06/2022 9:59 AM DENTAL OFFICE MANAGER SERUM HEPATITIS C AB Routine 04/17/2016 8:44 AM CDT from Last 3 Months or Most Recently Relevant to Health Maintenance Results * OCT, Retina - OU - Both Eyes (05/07/2025 11:31 AM CDT) Anatomical Region Laterality Modality Head Other Narrative 05/08/2025 2:44 PM CDT Right Eye Quality was good. Progression has been stable. Findings include epiretinal membrane, lamellar hole. Left Eye Quality was good. Scan locations included subfoveal. Progression has been stable. Findings include normal observations. Notes Right eye (OD): erm with lamellar hole Left eye (OS): normal contour Leanne Funez OD OPHTH TOMOGRAPHY Final Res ult * OCT, Optic Nerve - OU - Both Eyes (05/07/2025 11:31 AM CDT) Anatomical Region Laterality Modality Head Other Narrative 05/14/2025 9:55 AM CDT Right Eye Reliability was good. Temporal thickness was normal. Superior thickness was normal. Nasal thickness was normal. Inferior thickness was normal. Left Eye Reliability was good. Temporal thickness was normal. Superior thickness was normal. Nasal thickness was normal. Inferior thickness was normal. Leanne Funez OD OPHTH TOMOGRAPHY Final Res ult * COLONOSCOPY (09/06/2022 9:59 AM DENTAL OFFICE MANAGER) Anatomical Region Laterality Modality Other Narrative Procedure Note Nuha Turner MD - 09/06/2022 9:59 AM CST [facility] Patient Name: Belinda Fong Procedure Date: 09/06/2022 9:59 AM Date of : 1955 Admit Type: Outpatient Age: 66 Gender: Female Attending MD: Nuha Turner M.D. Room: [facility] ENDOSCOPY ROOM 1 Note Status: Finalized Patient Profile: This is a 66 year old female. Patient had recentiron deficiency anemia and questionable blood in thestool. No family history of colon cancer. Procedure: Colonoscopy Indications: Last colonoscopy: February 2021, Iron deficiencyanemia Referring MD: Jose Marcano M.D. Providers: Nuha Turner M.D. Impression: - One 5 mm polyp in the rectum, removed with a cold biopsy forceps. Resected and retrieved. Recommendation: - Await pathology results. - Repeat colonoscopy in 5-7 years forsurveillance. Medicines: Monitored Anesthesia Care Complications: No immediate complications. Estimated Blood Loss: Estimated blood loss: none. Procedure: Pre-Anesthesia Assessment: - Prior to the procedure, a History and Physicalwas performed, and patient medications and allergieswere reviewed. The patient's tolerance of previous anesthesia was also reviewed. The risks andbenefits of the procedure and the sedation options and risks were discussed with the patient. All questions were answered, and informed consent was obtained. Prior Anticoagulants: The patient has taken noanticoagulant or antiplatelet agents. ASA Grade Assessment: III -A patient with severe systemic disease. Afterreviewing the risks and benefits, the patient was deemed in satisfactory condition to undergo the procedure. The benefits, risks and alternatives of theprocedure and sedation were discussed and informed consentwas obtained. All questions were answered. Please referto the signed informed consent document in the medical record. The bowel preparation used was Miralax and bisacodyl tablets via split dose instruction. The scope was passed under direct vision. The Pediatric Colonoscope PCF-H190L [id number] was introducedthrough the anus and advanced to the the cecum, identifiedby appendiceal orifice and ileocecal valve. Thequality of the bowel preparation was good. Bowel prep was administered using a split dose. Findings: The perianal and digital rectal examinations were normal. The cecum appeared normal. The terminal ileum appeared normal. The sigmoid colon, descending colon, transverse colon and ascending colon appeared normal. A 5 mm polyp was found in the rectum. The polyp was semi-sessile. The polyp was removed with a cold biopsy forceps. Resection and retrieval were complete. Retroflexion of the rectum showed small internal hemorrhoids. Electronically signed by Nuha Turner M.D. Nuha Turner M.D. 09/06/2022 11:47:20 AM Number of Addenda: 0 Note Initiated On: 09/06/2022 9:59 AM Procedure Code(s): --- Professional --- 08773, Colonoscopy, flexible; with biopsy, single or multiple Diagnosis Code(s): --- Professional --- D12.8, Benign neoplasm of rectum D50.9, Iron deficiency anemia, unspecified CPT copyright 2020 [employer]. All rights reserved. The codes documented in this report are preliminary and upon dimension quarry supervisor reviewmay be revised to meet current compliance requirements. Recognized by the [employer] for promoting quality in endoscopy Nuha Turner MD ENDOSCOPY PROCEDURES Final Result * Serum Hepatitis C ab (04/17/2016 8:44 AM CDT) [facility] HCV ab Negative Negative HISTORICAL RESULTS Comment:Test performed at [facility], [address] [place] [address]., [id number] Serum 04/17/2016 8:44 AM CDT us Historical Provider LAB BLOOD ORDERABLES Lilia carlson Result HISTORICAL RESULTS from Last 3 Months or Most Recently Relevant to Health Maintenance Insurance MEDICARE [employer] SENIOR SUPPLEMENT MEDICARE T SENIOR SUPPLEMENT MEDICARE [employer] SENIOR SUPPLEMENT Advance Directives For more information, please contact: [phone] * Full Code (Latest Code Status on File) Date Activated Date Inactivated Comments 09/06/2022 9:59 AM 09/06/2022 4:31 PM Care Teams Airport Traffic Controller Relationship Specialty Start Date End Date Jose Marcano MD PCP - General Internal Medicine 08/19/20 Kyle Rodríguez MD Surgeon General Surgery 11/15/20
--- OUTSIDE RECORDS SUMMARY | 2025-06-25 14:04 | XMS_ITS | Patient Health Record ---
Author Organization [facility] Address [address] [place] [address] Care Team Providers Care Fire Alarm Mechanic Name Role Phone DEMETRIA DIZE Unavailable [phone] Reason For Referral No Information Plan Of Treatment No Information Insurance Providers Payer Name Payer Address Payer Phone Subscriber Number Group Number Insured Name Patient Relationship to Insured Coverage Start Date Coverage End Date [facility] [address] [place], [place] [id number] Belinda Fong Self - patient is the insured 5
--- OUTSIDE RECORDS SUMMARY | 2025-06-25 14:04 | XMS_ITS | Clinical Summary ---
Author Organization [facility] Address [address], [address] [place] [address] Phone Care Team Providers Care Igniter Capper Name Role Phone Jose Marcano MD Primary Care Provider Caroline Holly APRN, MACHINE HEDDLE CLEANER Unavailable [phone] Allergies Active Allergy Reactions Criticality Noted Date Comments Escitalopram Unknown 06/27/2022 Penicillin G Unknown 12/10/2015 Told she was allergic as a child Medications buPROPion (WELLBUTRIN) 100 MG Tablet Take 100 mg by mouth daily. Active levothyroxine (SYNTHROID) 112 MCG Tablet Take by mouth daily. Active [place]-3 Fatty Acids (OMEGA-3 FISH OIL PO) Take by mouth. Active valACYclovir (VALTREX) 500 MG Tablet Take 500 mg by mouth daily. Active simvastatin (ZOCOR) 20 MG Tablet Take 20 mg by mouth every evening. Active DULoxetine (CYMBALTA) [address] Particles Take 20 mg by mouth daily. Active ezetimibe (ZETIA) 10 MG Tablet Take 10 mg by mouth daily. Active Calcium Carbonate-Vit D-Min (CALCIUM 1200 PO) Take by mouth. Active VITAMIN D PO Take by mouth every 30 days. Active alendronate (FOSAMAX) 70 MG Tablet Take 70 mg by mouth every 7 days. Active modafinil (PROVIGIL) 100 MG Tablet Take 100 mg by mouth daily. Active ferrous sulfate (SV Iron) 325 (65 Fe) MG TabletIndication s:Iron deficiency anemia due to sideropenic dysphagia TAKE 1 TABLET BY MOUTH NIGHTLY AT BEDTIME. TAKE ON AN EMPTY STOMACH WITH VITAMIN C 90 Tablet 1 11/03/2024 Active losartan (COZAAR) 25 MG Tablet Take 25 mg by mouth daily. 01/13/2025 Active Active Problems Problem Noted Date Diagnosed Date LILY (obstructive sleep apnea) 02/05/2024 Personal history of tobacco use 11/06/2023 AVM (arteriovenous malformation) of duodenum, ac quired 03/27/2023 KARL (iron deficiency anemia) 06/27/2022 Resolved Problems Problem Noted Date Diagnosed Date Resolved Date Excessive daytime sleepiness 11/06/2023 02/05/2024 Snoring 11/06/2023 02/05/2024 Fatigue 11/06/2023 02/05/2024 Encounters Date Type Department Care Team Description 06/23/2025 1:30 PM CDT Lab [facility] [address] [place] [address] Gabriela Hilton March, Iron deficiency anemia due to sideropenic dysphagia Discharge Disposition: Discharged to home or Selfcare 06/23/2025 Travel 06/21/2025 Travel from Last 3 Months Immunizations Immunization Administration Dates Next Due Influenza, High-dose, Quadrivalent 08/24/2022, Influenza, Recombinant, Quadrivalent,injectable, Pf 08/28/2023 Influenza, high-dose, trivalent, PF 08/15/2024 Family History Medical History Relation Name Comments Cancer Brother brain Cancer Father leukemia & esop hagus Diabetes Father Diabetes Mother Hypertension Mother Stroke Mother Hypertension Sister Relation Name Status Comments Brother Father Mother Sister Social History Tobacco Use Types Packs/Day Years Used Date Smoking Tobacco: Every Day Cigarettes 1.5 50 Smokeless Tobacco: Never Tobacco Cessation:Ready to Q uit: Yes; Counseling Given: Yes Alcohol Use Standard Drinks/Week Comments No 0 (1 standard drink = 0.6 oz pur e alcohol) Comments No Sex and Gender Information Value Date Recorded Sex Assigned at Not on file Legal Sex Female 12:37 AM CDT Gender Identity Not on file Sexual Orientation Not on file Occupation Industry Job Start Date Job End Date [employer] Not on file Not on file Not on file Last Filed Vital Signs Vital Sign Reading Time Taken Comments Blood Pressure 140/70 02/02/2025 1:17 PM CDT Pulse 78 02/02/2025 1:17 PM CDT Temperature 36.9 C (98.4 F) 02/02/2025 1:17 PM CDT Respiratory Rate 20 02/02/2025 1:17 PM CDT Oxygen Saturation 93% 02/02/2025 1:17 PM CDT Inhaled Oxygen Concentration - - Weight 74.3 kg (163 lb 12.8 oz) 02/02/2025 1:17 PM CDT Height 167.6 cm (5' 6) 02/02/2025 1:17 PM CDT Body Mass Index 26.44 02/02/2025 1:17 PM CDT Plan of Treatment Upcoming Encounters Date Type Department Care Team (Late st Contact Info) Description 06/29/2025 1:20 PM CDT [facility] [address] [place] [address] [facility] [address] [place] [address] Pj Altman MD [address] [place] [address] Discharge Disposition: Discharged to home or Selfcare 08/04/2025 1:00 PM CDT Office Visit [facility] - Pulmonology & [facility] [address] [place] [address] Caroline Holly APRN, MACHINE HEDDLE CLEANER [address] [address] Health Maintenance Due Date Last Done Comments DEXA Bone Density 1955 Hepatitis C Virus (HCV) Screening 1955 Cologuard 1999 Lung Cancer Screening 2004 Mammogram 11/10/2020 11/10/2019 Immunochemical Fecal Occult Blood 06/14/2023 06/14/2022 Influenza Immunization (#1) 06/22/202507/23, 08/28/2023, 08/22/2023, Additional history exists SARS-COV-2 Immunization ( season) 2025 04/13/2022, 10/07/2021, 01/26/2021, Additional history exists Pneumococcal Immunization (50+ years) (3 of 3 - PCV20 or PCV21) 07/14/2025 07/14/2020, 11/06/2018, 08/21/2011 Colonoscopy 09/06/2029 09/06/2022, 01/2021, 12/14/2015 Colorectal Cancer Screening 09/06/2029 DTaP/Tdap/Td Immunization Discontinued 11/04/2015 TdaP Immunization Completed 11/04/2015 Pneumococcal Immunization Combined Discontinued 07/14/2020, 11/06/2018, 08/21/2011 Zoster Immunization Completed 09/14/2020, 08/31/2020, 06/30/2020, Additional history exists Respiratory Syncytial Virus (RSV) Immunization (Adult) Completed 11/06/2023, 10/22/2023 Hepatitis B Immunization Aged Out No longer eligible based on patient's age to complete this topic Human Papillomavirus (HPV) Immunization Aged Out No longer eligible based on patient's age to complete this topic Meningococcal Immunization (ACWY) Aged Out No longer eligible based on patient's age to complete this topic Rotavirus Immunization Aged Out No lo nger eligible based on patient's age to complete this topic Procedures Procedure Name Priority Date/Time Associated Diagnosis Comments CBC WITH AUTO DIFFERENTIAL Routine 06/23/2025 1:36 PM CDT Iron deficiency anemia due to sideropenic dysphagia FOLIC ACID (FOLATE) Routine 06/23/2025 1 :36 PM CDT Iron deficiency anemia due to sideropenic dysphagia COMPLETE BLOOD COUNT (CBC) WITH DIFF Routine 06/23/2025 1:36 PM CDT Iron deficiency anemia due to sideropenic dysphagia VITAMIN B12 Routine 06/23/2025 1:36 PM CDT Iron deficiency anemia due to sideropenic dysphagia IRON,TRANSFERN,CALC.T IBC,%SAT Routine 06/23/2025 1:36 PM CDT Iron deficiency anemia due to sideropenic dysphagia FERRITIN Routine 06/23/2025 1:36 PM CDT Iron deficiency anemia due to sideropenic dysphagia from Last 3 Months Results * IRON,TRANSFERN,CALC.TIBC,%SAT (06/23/2025 1:36 PM CDT) Pathologist [facility] IRON 92 25 - 156 mcg/dL 06/23/2025 2:58 PM CDT [facility] TRANSFERRIN 303 173 - 360 mg/dL 06/23/2025 2:58 PM CDT [facility] TIBC, CALCULATED 379 265 - 497 mcg/dL 06/23/2025 2:58 PM CDT [facility] % SATURATION * 24 15 - 62 % 06/23/2025 2:58 PM CDT [facility] Blood Venipuncture / Unknown 06/23/2025 1:36 PM CDT 06/23/2025 1:36 PM CDT Gabriela Hilton PAC CHEMISTRY ORDERABLES Lilia l Result [facility] [address] [place] [address] * (ABNORMAL) CBC WITH AUTO DIFFERENTIAL (06/23/2025 1:36 PM CDT) WBC 8.81 4.00 - 12.00 10(3)/mcL 06/23/2025 2:06 PM CDT [facility] RBC 4.61 3.80 - 5.30 10(6)/mcL 06/23/2025 2:06 PM CDT [facility] HEMOGLOBIN (HGB) 14.8 12.0 - 15.8 g/dL 06/23/2025 2:06 PM CDT [facility] HEMATOCRIT (HCT) 43.7 36.0 - 47.0 % 06/23/2025 2:06 PM CDT [facility] MCV 94.8 82.0 - 96.0 fL 06/23/2025 2:06 PM CDT [facility] MCH 32.1 26.0 - 34.0 pg 06/23/2025 2:06 PM CDT [facility] MCHC 33.9 31.0 - 36.0 g/dL 06/23/2025 2:06 PM CDT [facility] PLATELET COUNT 254 140 - 440 10(3)/mcL 06/23/2025 2:06 PM CDT [facility] RDW 13.2 11.8 - 15.5 % 06/23/2025 2:06 PM CDT [facility] MPV 9.5(L) 9.7 - 12.4 fL 06/23/2025 2:06 PM CDT [facility] NEUTROPHILS 68.6 47.0 - 73.0 % 06/23/2025 2:06 PM CDT [facility] LYMPHOCYTES 20.8 18.0 - 42.0 % 06/23/2025 2:06 PM CDT [facility] MONOCYTES 7.4 4.0 - 12.0 % 06/23/2025 2:06 PM CDT [facility] EOSINOPHILS 1.9 0.0 - 5.0 % 06/23/2025 2:06 PM CDT [facility] BASOPHILS 0.7 0.0 - 1.0 % 06/23/2025 2:06 PM CDT [facility] IMMATURE GRANULOCYTE 0.6(H) 0.0 - 0.4 % 06/23/2025 2:06 PM CDT [facility] Comment:Immature Granulocyte s includes Metamyelocytes, Myelocytes, and Promyelocytes. ABSOLUTE NEUTROPHILS 6.05 1.60 - 7.70 10(3)/mcL 06/23/2025 2:06 PM CDT [facility] ABSOLUTE LYMPHOCYTES 1.83 1.30 - 3.20 10(3)/mcL 06/23/2025 2:06 PM CDT [facility] ABSOLUTE MONOCYTES 0.65 0.20 - 1.00 10(3)/mcL 06/23/2025 2:06 PM CDT [facility] ABSOLUTE EOSINOPHIL 0.17 0.00 - 0.40 10(3)/[facility] 06/23/2025 2:06 PM CDT [facility] ABSOLUTE BASOPHILS 0.06 0.00 - 0.10 10(3)/[facility] 06/23/2025 2:06 PM CDT [facility] ABSOLUTE IMMATURE GRANULOCYTE 0.05(H) 0.00 - 0.03 10 (3) mcL. 06/23/2025 2:06 PM CDT [facility] NRBC PER 100 WBC 0 06/23/20 2:06 PM CDT [facility] Blood Venipuncture / Unknown 06/23/2025 1:36 PM CDT 06/23/2025 1:36 PM CDT [facility] PAC HEMATOLOGY ORDERABLES Fin al Result Performing Organization Address City/[facility]/ZIP Co de Phone Number [facility] [address] [place] [address] * VITAMIN B12 (06/23/2025 1:36 PM CDT) VITAMIN B12 716 213 - 816 pg/mL 06/23/2025 3:28 PM CDT [facility] Blood Venipuncture / Unknown 06/23/2025 1:36 PM CDT 06/23/2025 1:36 PM CDT [facility] PAC CHEMISTRY ORDERABLES Lilia l Result [facility] [address] [place] [address] * FOLIC ACID (FOLATE) (06/23/2025 1:36 PM CDT) FOLATE 10.7 7.0 - 31.4 ng/mL 06/23/2025 3:28 PM CDT [facility] IS THE PATIENT REQUIRED TO BE FASTING? No 06/23/2025 3:28 PM CDT [facility] Blood Venipuncture / Unknown 06/23/2025 1:36 PM CDT 06/23/2025 1:36 PM CDT [facility] PAC CHEMISTRY ORDERABLES Lilia l Result Performing Organization Address City/[facility]/ZIP Co de Phone Number [facility] [address] [place] [address] * FERRITIN (06/23/2025 1:36 PM CDT) Pathologist [facility] FERRITIN 59 5 - 204 ng/mL 06/23/2025 3:14 PM CDT [facility] Blood Venipuncture / Unknown 06/23/2025 1:36 PM CDT 06/23/2025 1:36 PM CDT [facility] PAC CHEMISTRY ORDERABLES Lilia l Result [facility] [address] [place] [address] from Last 3 Months Insurance MEDICARE [employer]LE[employer]AL Care Teams Igniter Capper Relationship Specialty Start Date End Date Jose Marcano MD [address] [place] [address] PCP - General 12/13/15 Caroline Holly, CORPORATE SAFETY COORDINATOR, MACHINE HEDDLE CLEANER [address] [place] [address] Nurse Practitioner Advanced Practice Nurse 11/06/23
--- OUTSIDE RECORDS SUMMARY | 2025-06-25 14:04 | XMS_ITS | Clinical Summary ---
Author Organization [facility] Address [address] [place] [address] Care Team Providers Care Scaffold Setter Name Role Phone Unavailable Primary Care Provider Unavailabl e Source Comments [facility],non-owned Affiliates and Associated Physician Practices is amultiple site organization consisting of ambulatory clinics and hospital sitesin [place], [place], [place] and [place]. This disclosure is being madepursuant to the Care Everywhere program and may not contain all information available regarding this patient. Last updated 18.[facility] [employer] Social History Tobacco Use Types Packs/Day Years Used Date Smoking Tobacco: Never Assessed Comments Unknown Sex and Gender Information Value Date Recorded Sex Assigned at Not on file Legal Sex Female 6:19 AM COMPUTER PROCESSING SCHEDULER Gender Identity Not on file Sexual Orientation Not on file Plan of Treatment Health Maintenance Due Date Last Done Comments BONE DENSITY TESTING 1955 COLOGUARD (AGES 45-75) - COL ON CA SCREENING 1954 COLON MONITORING 1954 COLONOSCOPY - COLON CA SCREENING 1954 CT COLONOGRAPHY - COLON CA SCREENING 1955 Colorectal Cancer Screening 1955 FIT - COLON CA SCREENING 1954 FLEX SIG - COLON CA SCREENING 1954 LIPID TESTING 1955 MAMMOGRAM 1955 MEDICARE AWV 12 MONTHS 1954 HEPATITIS C SCREENING 11/24/1972 DTAP/TDAP/TD VACCINES (1 - Tdap) 1973 PNEUMOCOCCAL VACCINE 50+ (1 of 1 - PCV) 2004 ZOSTER VACCINE (1 of 2) 2004 DEPRESSION SCREENING 10/22/2024 COVID-19 VACCINE ( - 2023-2 5 season) 2025 INFLUENZA VACCINE (#1) 2025 Respiratory Syncytial Virus (RSV) Vaccine Pt: or over 60 yrs (1 - 1-dose 75+ series) 2029 HEPATITIS B VACCINE Aged Out No longe r eligible based on patient's age to complete this topic HIB VACCINE Aged Out No longer eligi ble based on patient's age to complete this topic HPV VACCINE Aged Out No longer eligi ble based on patient's age to complete this topic MENINGOCOCCAL (Group B) VACC INE SHARED DECISION-MAKING Aged Out No longer eligibl e based on patient's age to complete this topic MENINGOCOCCAL GROUPS A/C/Y/W VACCINE Aged Out No longer eligible b ased on patient's age to complete this topic Insurance MEDICARE [facility] [place] [address]
--- OUTSIDE RECORDS SUMMARY | 2025-06-25 14:04 | XMS_ITS | Encounter Summary ---
Author Organization [facility] Address [address] [place] [phone] Care Team Providers Care Hydraulic Spinner Name Role Phone Jose Marcano MD Primary Care Provider [phone] Reason for Visit * Reason Onset Date Comments yellow /flag- sore throat 09/27/2023 Encounter Details Date Type Department Care Team (Late st Contact Info) Description 09/27/2023 Telephone [facility] Primary Care [address] [place] [address] Jose Marcano MD [address] [place] [address] [address] [place] [address] yellow /flag- sore throat Social History Tobacco Use Types Packs/Day Years Used Date Smoking Tobacco: Every Day Cigarettes 0.3 40 Started: 05/03/1982; Last attempted to quit: 05/03/2022 Smokeless Tobacco: Never Alcohol Use Standard Drinks/Week Comments No 0 [...] AM CDT Legal Sex Female 5:59 AM CNA CAREGIVER Gender Identity Female 01/06/2025 9:31 AM CDT Sexual Orientation Straight 01/06/2025 9: 31 AM CDT documented as of this encounter Miscellaneous Notes * Telephone Encounter - Sherita Deal - 09/28/2023 10:05 AM CST Informed pt CAREGIVER * Telephone Encounter - Jose Marcano MD - 09/27/2023 1:58 PM CST Zpak sent make appt if not improved CAREGIVER * Telephone Encounter - Ivy Marte PCA - 09/27/2023 10:48 AM CST CLINIC ACTION NEEDED: Not able to schedule appointment within the recommended timeframe. Patient informed of additional [employer] Resources: not applicable but DECLINES, requests their Primary Care team contact them regarding their clinical concern. Caller also advised to call back: in 48 hours if they have not received contact Inform patient/caller: [employer] is available -if the condition worsens or new symptomsdevelop and you are concerned, you may call your providers office and our after-hour greeting will give you the option to speak with a Nurse with [employer]. Agent notified patient/caller of the call back advice. SORE THROAT When did it start? 09/25 Fever: no fever. Swollen glands: Yes White spots on tonsils: No Body aches: mild Nasal discharge: Yes Color: clear Cough: mild Described as: dry Rayq-nsm-Pkwcoue remedies tried: na Has patient been in contact with anyone who is sick? No CAREGIVER documented in this encounter Plan of Treatment Upcoming Encounters Date Type Department Care Team (Late st Contact Info) Description 07/14/2025 11:00 AM CDT Office Visit [address] [place] [address] Louisa Frias PA [address] [place] [address] [address] [place] [address] 01/14/2026 11:40 AM CDT Office Visit [address] [place] [address] Jose Marcano MD [address] [place] [address] [address] [place] [address] documented as of this encounter Visit Diagnoses Not on filedocumented in this encounter Care Teams Hydraulic Spinner Relationship Specialty Start Date End Date Jose Marcano MD PCP - General Internal Medicine 11/28/10 documented as of this encounter
== END 2025-06-25 13:48 | disposition home or self-care (01) ==
LOC: ANHFOHIMG 13:53
PROVIDERS: PCP Internal Medicine; Visit Provider Obstetrics & Gynecology Gynecology
DX: Z12.31 Encounter for screening mammogram for malignant neoplasm of breast (principal); Z78.0 Asymptomatic menopausal state; M85.852 Other specified disorders of bone density and structure, left thigh; M85.851 Other specified disorders of bone density and structure, right thigh
CPT/HCPCS: 77063; 77067; 77080